=== PATIENT | male | born 1940 | race Caucasian/White ===

== ENCOUNTER → 2021-07-03 02:14 | Outpatient (CLI) | payer MEDICARE, SELFPAY ==
[2021-07-03 19:00] LABS: SARS-CoV-2 RNA PCR Negative
== END ==
DX: Z01.812 Encounter for preprocedural laboratory examination (principal); Z20.822 Contact with and (suspected) exposure to COVID-19
CPT/HCPCS: C9803; U0003; U0005

== ENCOUNTER → 2022-06-26 08:26 | Outpatient (CLI) | payer MEDICARE, SELFPAY ==
--- NOTE | ~2022-06-26 | MR_ITS ---
EXAMINATION: MR lumbar spine wo con DATE: 06/26/2022 09:11 INDICATION: Low back pain. TECHNIQUE: Magnetic resonance imaging (MRI) of the lumbar spine was performed without intravenous con trast. Sequences included sagittal T2-weighted FSE, sagittal T2-weighted FS FSE, sagittal T1-weighted FSE, and axial T2-weighted FSE. COMPARISON: None FINDINGS: There is 9 degrees levocurvature of lumbar spine. There is 3 mm retrolisthesis of L2 on L3, L3 on L4, L4 on L5, and L5 on S1. Vertebral body heights are normal. There is moderately decreased d isc height at L1-L2 and severely decreased disc height from L2-L3 through L5-S1 with endplate remodel ing. The distal spinal cord signal intensity is normal. The conus medullaris is at L1. The following disc levels are specifically discussed: L1-L2: The disc is bulging and has an annular fissure. There is severe bilateral facet joint osteoart hritis. There is mild bilateral neural foraminal stenosis. There is mild central canal stenosis. L2-L3: The disc is bulging and has an annular fissure. There is moderate bilateral facet joint osteoa rthritis. There is an 8 mm synovial cyst from left facet joint in the epidural space. There is modera te bilateral neural foraminal stenosis. There is severe central canal stenosis. L3-L4: The disc is bulging and has an annular fissure. 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 There is moderate right and mild left neural foraminal stenosis. There is mild central canal stenosis. L4-L5: The disc is bulging and has an annular fissure. There is severe bilateral facet joint osteoart hritis. There is moderate right and severe left neural foraminal stenosis. There is mild central danny l stenosis. L5-S1: The disc is bulging and has an annular fissure. There is moderate bilateral facet joint osteoa rthritis. There is moderate bilateral neural foraminal stenosis. There is mild central canal stenosis . IMPRESSION: 1. Severe lumbar spondylosis. Reviewed, dictated and finalized at location A.
== END ==
PROVIDERS: PCP Internal Medicine; Visit Provider Neurological Surgery
DX: M47.26 Other spondylosis with radiculopathy, lumbar region (principal)
CPT/HCPCS: 72148